=== PATIENT | female | born 1970 | race Caucasian/White ===

== ENCOUNTER 2017-08-28 04:35 | Emergency (ER) | payer OTHER ==
[~2017-08-28] VITALS: Wt 113.4 kg
[~2017-08-28 04:35] MED LIST: CHOLESTEROL MED PO; DAYPRO600 M1 PO; DIABETIC MED PO; GLIPIZIDE5 MG PO; HYDROCODONE BIT1 T11 PO; JANUMET 500 MG-1 TA1 PO; METFORMIN500 MG PO; MOTRIN600 MG PO; THYROID MED PO; ULTRAM50 MG PO; ZYRTEC10 M1 PO
[2017-08-28 04:44] VITALS: BP 119/62
[2017-08-28] MEDS ORDERED: NAPROSYN500 MG PO (05:04)
[2017-08-28] MEDS ORDERED: CYCLOBENZAPRINE10 MG PO (05:04)
== END 2017-08-28 05:34 | disposition home or self-care (01) ==
LOC: ED 04:35
DX: M54.5 Low back pain (principal); Z88.2 Allergy status to sulfonamides

== ENCOUNTER 2017-12-25 23:54 | Emergency (ER) | payer OTHER ==
[~2017-12-25] VITALS: Ht 162.5 cm; Wt 127.0 kg
[~2017-12-25 23:54] MED LIST changes: +CYCLOBENZAPRINE10 MG PO; +NAPROSYN500 MG PO
[2017-12-26] VITALS: BP 138/63
[2017-12-26] MEDS ORDERED: ROBAXIN500 M1 PO (01:00)
[2017-12-26] MEDS ORDERED: ANAPROX DS550 MG PO (01:00)
== END 2017-12-26 01:12 | disposition home or self-care (01) ==
LOC: ED 23:54
DX: M25.511 Pain in right shoulder (principal); M54.6 Pain in thoracic spine; Z79.899 Other long term (current) drug therapy; Z88.2 Allergy status to sulfonamides; V49.88XA Car occupant (driver) (passenger) injured in other specified transport accidents, initial encounter; Y93.89 Activity, other specified; Y92.413 State road as the place of occurrence of the external cause; Y99.9 Unspecified external cause status

== ENCOUNTER → 2018-02-16 | Outpatient (CLI) | payer OTHER ==
[~2018-02-16] MED LIST changes: +ANAPROX DS550 MG PO; +ROBAXIN500 M1 PO
== END | disposition home or self-care (01) ==
LOC: RAD 15:51
DX: M47.817 Spondylosis without myelopathy or radiculopathy, lumbosacral region (principal); M47.816 Spondylosis without myelopathy or radiculopathy, lumbar region; M51.36 Other intervertebral disc degeneration, lumbar region

== ENCOUNTER → 2021-08-29 | Outpatient (CLI) | payer BC | END | disposition home or self-care (01) | LOC: MAMMO 08-28 15:00 | PROVIDERS: ATTEND Nurse Practitioner | DX: Z12.31 Encounter for screening mammogram for malignant neoplasm of breast (principal) ==

== ENCOUNTER → 2021-10-31 | Outpatient (CLI) | payer BC | END | disposition home or self-care (01) | LOC: COVID19 16:54 | PROVIDERS: ATTEND Internal Medicine | DX: U07.1 COVID-19 (principal) ==

== ENCOUNTER 2022-11-25 13:24 | Emergency (ER) | payer BC ==
[~2022-11-25] VITALS: Ht 165.1 cm; Wt 106.6 kg
[2022-11-25 13:39] VITALS: BP 148/73
[2022-11-25] MEDS ORDERED: APLENZIN174 MG PO (13:41)
[2022-11-25] MEDS ORDERED: VENT7GM INH (13:41)
[2022-11-25] MEDS ORDERED: ATORVASTATIN CA10 M1 PO (13:41)
[2022-11-25] MEDS ORDERED: NAPROSYN500 MG PO (13:54)
[2022-11-25] MEDS ORDERED: OZEMPIC0.25 MG/01 SQ (14:10)
== END 2022-11-25 14:16 | disposition home or self-care (01) ==
LOC: ED 13:24
DX: S76.911A Strain of unspecified muscles, fascia and tendons at thigh level, right thigh, initial encounter (principal); M54.50 Low back pain, unspecified; Z88.2 Allergy status to sulfonamides; F10.90 Alcohol use, unspecified, uncomplicated; X50.0XXA Overexertion from strenuous movement or load, initial encounter; Y93.89 Activity, other specified; Y92.89 Other specified places as the place of occurrence of the external cause; Y99.8 Other external cause status

== ENCOUNTER → 2022-11-27 | Outpatient (CLI) | payer BC ==
[~2022-11-27] MED LIST changes: +APLENZIN174 MG PO; +ATORVASTATIN CA10 M1 PO; +OZEMPIC0.25 MG/01 SQ; +VENT7GM INH
== END | disposition home or self-care (01) ==
LOC: RAD 10:05
PROVIDERS: ATTEND Nurse Practitioner Family
DX: M47.816 Spondylosis without myelopathy or radiculopathy, lumbar region (principal); M47.817 Spondylosis without myelopathy or radiculopathy, lumbosacral region; M48.061 Spinal stenosis, lumbar region without neurogenic claudication; M25.78 Osteophyte, vertebrae; M79.651 Pain in right thigh

== ENCOUNTER → 2024-08-13 | Outpatient (CLI) | payer BC | END | disposition home or self-care (01) | LOC: CT 00:43 | PROVIDERS: ATTEND Nurse Practitioner Family | DX: D36.0 Benign neoplasm of lymph nodes (principal); R13.10 Dysphagia, unspecified; R41.3 Other amnesia ==

== ENCOUNTER → 2024-09-14 | Outpatient (CLI) | payer BC ==
[2024-09-14 11:11] LABS: BASO # 0.1 10*3/uL (0.0-0.1); BASO % 0.7 % (0.0-1.0); EOS # 0.4 10*3/uL (0.0-0.4); EOS % 4.7 % (1.0-4.0); HEMATOCRIT 36.4 % (37.0-47.0); MEAN CELL VOLUME 77.3 fl (81.0-99.0); MEAN CORPUSCULAR HGB 25.9 pg (27.0-31.0); MEAN CORPUSCULAR HGB CONC 33.5 g/dl (33.0-37.0); MEAN PLATELET VOLUME 9.4 fl (9.6-12.3); MONO # 0.5 10*3/uL (0.1-1.0); MONO % 6.4 % (3.0-9.0); NEUT # 4.1 10*3/uL (2.3-7.9); NEUT % 54.4 % (47.0-73.0); PLATELET COUNT AUTOMATED 260 10*3/uL (130-400); RED BLOOD COUNT 4.71 10*6/uL (4.10-5.10); WHITE BLOOD COUNT 7.5 10*3/uL (4.8-10.8)
[2024-09-14 11:32] LABS: ALKALINE PHOSPHATASE 80 U/L (46-116); BUN 14 mg/dl (9-23); CHLORIDE 106 mmol/L (98-107); POTASSIUM 3.7 mmol/L (3.4-5.1); SGPT/ALT 16 U/L (5-49); TOTAL PROTEIN 6.9 gm/dL (6.0-8.0)
== END | disposition home or self-care (01) ==
LOC: LAB 03:38
PROVIDERS: ATTEND Nurse Practitioner Family
DX: E11.65 Type 2 diabetes mellitus with hyperglycemia (principal)

== ENCOUNTER → 2025-04-01 | Outpatient (CLI) | payer BC ==
[2025-04-01 11:26] LABS: BASO # 0.1 10*3/uL (0.0-0.1); BASO % 0.8 % (0.0-1.0); EOS # 0.4 10*3/uL (0.0-0.4); EOS % 6.5 % (1.0-4.0); HEMATOCRIT 39.1 % (37.0-47.0); MEAN CELL VOLUME 81.1 fl (81.0-99.0); MEAN CORPUSCULAR HGB 26.1 pg (27.0-31.0); MEAN CORPUSCULAR HGB CONC 32.2 g/dl (33.0-37.0); MEAN PLATELET VOLUME 9.8 fl (9.6-12.3); MONO # 0.4 10*3/uL (0.1-1.0); MONO % 6.8 % (3.0-9.0); NEUT # 3.6 10*3/uL (2.3-7.9); NEUT % 55.7 % (47.0-73.0); PLATELET COUNT AUTOMATED 269 10*3/uL (130-400); RED BLOOD COUNT 4.82 10*6/uL (4.10-5.10); RED CELL DISTRI WIDTH 13.5 % (0-14.5); WHITE BLOOD COUNT 6.5 10*3/uL (4.8-10.8)
[2025-04-01 11:39] LABS: ALKALINE PHOSPHATASE 69 U/L (46-116); BUN 12 mg/dl (9-23); CHLORIDE 102 mmol/L (98-107); CHOLESTEROL 141 mg/dL (<200); LDL CHOLESTEROL 64 mg/dL (9-159); SGPT/ALT 14 U/L (5-49); TOTAL PROTEIN 6.8 gm/dL (6.0-8.0); TRIGLYCERIDES 52 mg/dl (<150)
== END | disposition home or self-care (01) ==
LOC: LAB 09:39
PROVIDERS: ATTEND Nurse Practitioner Family
DX: Z76.89 Persons encountering health services in other specified circumstances (principal)

== ENCOUNTER → 2025-04-12 | Outpatient (CLI) | payer BC | END | disposition home or self-care (01) | LOC: MAMMO 14:26 | PROVIDERS: ATTEND Nurse Practitioner Family | DX: Z12.31 Encounter for screening mammogram for malignant neoplasm of breast (principal); Z76.89 Persons encountering health services in other specified circumstances ==

== ENCOUNTER → 2025-05-03 | Outpatient (CLI) | payer BC | END | disposition home or self-care (01) | LOC: US 14:17 | PROVIDERS: ATTEND Nurse Practitioner Family | DX: M79.89 Other specified soft tissue disorders (principal) ==

== ENCOUNTER → 2025-07-04 | Outpatient (CLI) | payer BC ==
[2025-07-04 18:29] LABS: BUN 12 mg/dl (9-23); SGPT/ALT 16 U/L (5-49)
[2025-07-04 18:31] LABS: VITAMIN D, 25-HYDROXY 92.8 ng/mL (30-100)
== END ==
LOC: LAB 17:47
PROVIDERS: ATTEND Nurse Practitioner Family
DX: E11.9 Type 2 diabetes mellitus without complications (principal); J45.909 Unspecified asthma, uncomplicated; E03.9 Hypothyroidism, unspecified; E78.5 Hyperlipidemia, unspecified; Z76.89 Persons encountering health services in other specified circumstances; E55.9 Vitamin D deficiency, unspecified; E53.8 Deficiency of other specified B group vitamins